=== PATIENT | female | born 1980 | race Caucasian/White ===

== ENCOUNTER 2018-03-04 08:04 | Outpatient (CLI) | payer MEDICAID ==
[~2018-03-04] VITALS: Ht 165.1 cm; Wt 63.2 kg
--- NOTE | ~2018-03-04 | OP ---
PATIENT NAME: RITA DANIELSON MEDICAL RECORD: [id number] :[birth year] LOCATION:D.CAT ADMISSION DATE: SURGEON: MONE DUMONT MD DATE OF OPERATION: 03/04/2018 PROCEDURES: 1. Left heart catheterization. 2. Selective coronary angiography. 3. Left ventriculogram. 4. Four-vessel carotid vertebral angiography. PROCEDURE IN DETAIL: After informed consent was obtained and after a detailed description of risks, benefits as well as alternative therapies, the patient elected to proceed with angiogram and heart catheterization. The right femoral area was prepped and draped in normal sterile fashion. Right femoral artery was cannulated via modified Seldinger technique with placement of 5-Qatari sheath. All catheters exchanged through this sheath. FINDINGS: Left ventriculogram was performed in standard 30-degree OCHOA view, reveals good cardiac wall motion throughout all segments. Overall ejection fraction estimated at 55% to 60%. SELECTIVE CORONARY ANGIOGRAPHY: Left main, left anterior descending, left circumflex, right coronary artery are all smooth-walled vessels with no angiographic evidence of coronary artery disease. FOUR-VESSEL CAROTID VERTEBRAL ANGIOGRAPHY: There was subselection of each subclavian as well as the left carotid. FINDINGS: RIGHT SIDE: The common internal and external carotids have no significant disease. Vertebral arteries devoid of disease. LEFT SYSTEM: The common internal and external carotids have no significant disease. Vertebral artery is widely patent with no significant disease. OVERALL IMPRESSION: 1. No significant coronary artery disease present. 2. Normal LV function. 3. No significant carotid vascular disease is present. TRANSINT:[id number] Voice Confirmation ID: [id number] DOCUMENT ID: [id number] MONE DUMONT MD at 1713 CC: [id number] DICTATION DATE: 03/04/18 1052 SUPERVISOR FIREARMS: 03/04/18 1105 DEP CLI 03/04/18 [address] [place] [address]
--- NOTE | ~2018-03-04 | HEMODYNAMI ---
PATIENT:RITA DANIELSON MEDICAL RECORD: [id number] : 84 LOCATION:C[facility]MO ADMISSION DATE: 03/04/18 Generatedon:03/04/201810:57 Patient name: RITA DANIELSON Patient #: [id number] SSN: : 1980 Date of study: 03/04/2018 Page: Of Hemodynamic Procedure Report Patient Data Patient Demographics Procedure consent was obtained First Name: RITA Gender: Female Last Name: ERUM : 1980 Patient #: [id number] Age: 37 year(s) Race: Black Additional ID: [id number] Contact details [address]: [address] [place] [address] State: [place] City: [place] Zip code: [address] Past Medical History Allergies: No known allergies Admission Admission Data Admission Date: 03/04/2018 Admission Time: 8:04 Procedure Procedure Types Cath Procedure Diagnostic Procedure LHC LHC w/Coronaries Peripheral Cath Diagnostic Procedure Cath Peripheral Four Vessel Arteriogram Procedure Description Procedure Date Procedure Date: 03/04/2018 Procedure Start Time: 10:38 Procedure End Time: 10:50 Procedure Staff Name Function Gabino Massey MD Performing Physician Minnie Elder RT Monitor Missy Hunt RT Scrub Abbi Musa RN Nurse Lucas Rodríguez RT After School Tutor Procedure Data Cath Procedure Fluoroscopy Diagnostic fluoroscopy Total fluoroscopy Time: 1.7 time: 1.7 min min Diagnostic fluoroscopy Total fluoroscopy dose: 211 dose: 211 mGy mGy Contrast Material Contrast Material Type Amount (ml) Isovue 300 57 Entry Location Entry Primary Successful Side Size Upsize Upsize Entry Closure Succes sful Closure Location (Fr) 1 (Fr) 2 (Fr) Remarks Device Remarks Femoral Right 5 Fr Exoseal artery Estimated blood loss: 10 ml Diagnostic catheters Device Type Used For End Catheter Placement MULTIPACK Pigtail 5 Fr Procedure catheter MULTIPACK JL 4.0 5Fr Procedure catheter MULTIPACK 3DRC 5Fr Procedure catheter Procedure Complications No complications Procedure Medications Medication Administration Route Dosage Oxygen NC 2 l/min Lidocaine 2% added to field 20 Heparin Flush Bag added to field 2 bags (1000units/500ml NS) 0.9% NaCl I.V. 100 ml/hr Versed I.V. 1 mg Fentanyl I.V. 50 mcg Versed I.V. 1 mg Fentanyl I.V. 50 mcg Hemodynamics Rest Heart Rate: 65 (bpm) Snapshots Pre Cath Intra NCS Post Cath Vital Signs Time Heart Resp SPO2 etCO2 NIBP (mmHg) Rhythm Pain Sedation Rate (ipm) (%) (mmHg) Status Level (bpm) 10:26:41 69 17 98 33.5 145/78(106) NSR 0 (11) 10(A) , No pain 10:31:13 68 15 96 34.2 Out of NSR 0 (11) 10(A) range , No pain 10:35:05 73 15 95 37.2 116/67(93) NSR 0 (11) 10(A) , No pain 10:39:35 74 13 96 37.2 117/65(88) NSR 0 (11) 10(A) , No pain 10:44:07 80 16 94 39.4 123/61(87) NSR 0 (11) 9(A) , No pain 10:52:31 74 15 95 37.2 117/63(87) NSR 0 (11) 10(A) , No pain Medications Time Medication Route Dose Verified Delivered Reason Notes Effe ctiveness by by 10:26:52 Oxygen NC 2 Gabino Buffie used for l/min Bryson Musa RN procedure 10:27:31 Lidocaine 2% added 20ml Gabino Lloyd for local to vial Bryson Massey MD anesthetic field 10:27:37 Heparin Flush added 2 Gabino Gabino used for Bag to bags Bryson Massey MD procedure (1000units/500ml field NS) 10:27:45 0.9% NaCl I.V. 100 Gabino Buffie Per ml/hr Bryson Musa RN physician 10:38:32 Versed I.V. 1 mg Gabino Personie for Bryson Musa RN sedation 10:38:38 Fentanyl I.V. 50 Gabino Buffie for mcg Bryson Musa RN sedation 10:43:40 Versed I.V. 1 mg Gabino Buffie for Bryson Musa RN sedation 10:43:44 Fentanyl I.V. 50 Gabino Buffie for mcg Bryson Musa RN sedation Procedure Log Time Note 9:55:33 Lucas Rodríguez RT(R) sent for patient. Start room use. 10:16:35 Time tracking: Regular hours (M-F 7:00 - 5:00) 10:16:39 Plan of Care:Hemodynamics will remain stable., Cardiac rhythm will remain stable., Comfort level will be maintained., Respiratory function will remain adequate., Patient/ family verbilizes understanding of procedure., Procedure tolerated without complication., Recovers from procedure without complications.. 10:16:54 Patient received from Pre/Post Procedure Room to CCL 2 Alert and oriented. Tansferred to table in Supine position. 10:16:55 Warm blankets applied, and zulma hugger turned on for patient comfort. 10:16:55 Correct patient and procedure confirmed by team. 10:16:56 Signed procedure consent form obtained from patient. 10:16:57 ECG and BP/O2 sat monitors applied to patient. 10:25:41 Vital chart was started 10:25:43 Baseline sample Acquired. 10:25:56 Rhythm: sinus rhythm 10:25:58 Full Disclosure recording started 10:26:34 H&P Date Dictated: 02/15/2018 Within 30 days and on chart., H&P Addendum completed by physician on day of procedure. (MUST COMPLETE FOR ALL OUTPATIENTS). 10:26:36 Pre-procedure instructions explained to patient. 10:26:39 Family in waiting room. 10:26:46 Patient NPO since Midnight. 10:26:52 Oxygen 2 l/min NC was administered by Abbi Musa RN; used for procedure; 10:26:54 Patient allergic to No known allergies 10:26:58 Is the patient allergic to Iodine/contrast media? No. 10:27:01 Was the patient premedicated? Yes 10:27:06 Is patient on blood thinner?No 10:27:16 Patient diabetic? Yes. 10:27:18 If diabetic: On Metformin? No 10:27:25 Patient not . Patient has had tubal. 10:27:31 Lidocaine 2% 20ml vial added to field was administered by Gabino Massey MD; for local anesthetic; 10:27:37 Heparin Flush Bag (1000units/500ml NS) 2 bags added to field was administered by Gabino Massey MD; used for procedure; 10:27:45 0.9% NaCl 100 ml/hr I.V. was administered by Abbi Musa RN; Per physician; 10::48 Snore? No 10::49 Sleep apnea? No 10:27:57 Dentures? Yes out 10:28:03 Patient pain scale 0/10 ?. 10:28:12 IV patent on arrival in left forearm with 0.9% NaCl at [facility]. 10::41 Lab results completed and on chart. 10::47 Right groin area was prepped with chlora-prep and draped in sterile fashion 10::47 Alarms reviewed by R. N. 10::48 Sharps counted by scrub and verified by R.N. 10::49 Physician paged 10:38:00 Physician arrived 10:38:00 --------ALL STOP TIME OUT------ 10:38:01 Final Timeout: patient, procedure, and site verified with staff and physician. All members of the team are in agreement. 10:38:05 Right groin site verified by team. 10:38:08 Physical assessment completed. ASA score P 2 - A patient with mild systemic disease as per Gabino Massey MD. 10:38:13 Sedation plan: IV Moderate Sedation Medication:Versed, Fentanyl 10:38:17 Procedure started. 10:38:19 Use device set Femoral Dx 10:38:23 Local anesthetic to right femoral artery with Lidocaine 2% by Gabino Massey MD.INITIAL ACCESS ONLY 10:38:32 Versed 1 mg I.V. was administered by Abbi Musa RN; for sedation; 10:38:35 A 5 Fr sheath was inserted into the Right Femoral artery 10:38:38 Fentanyl 50 mcg I.V. was administered by Abbi Musa RN; for sedation; 10:39:08 ACIST Syringe (78282) opened to sterile field. 10:39:08 Bag Decanter (2002) opened to sterile field. 10:39:11 Medline Cath Pack ([id number]) opened to sterile field. 10:39:12 DIAGNOSTIC WIRE .035 260cm J wire (295080) opened to sterile field. 10:39:13 ACIST Hand Control (03214) opened to sterile field. 10:39:14 ACIST Manifold (48909) opened to sterile field. 10:39:16 DIAGNOSTIC Multipack 5Fr catheter set (RV1538) opened to sterile field. 10:39:17 Tegaderm 4 x 4 (1626W) opened to sterile field. 10:39:18 PERCUTANEOUS ENTRY 19GA needle opened to sterile field. 10:39:20 SHEATH Prelude 5Fr 0.035 (VSC-6K-15-035) opened to sterile field. 10:39:23 J wire advanced. 10:39:42 A MULTIPACK Pigtail 5 Fr catheter was advanced over the wire and used for Procedure. 10:39:51 LV angiography performed. 10:40:11 EF : 55 % 10:40:12 Catheter removed. 10:40:20 A MULTIPACK JL 4.0 5Fr catheter was advanced over the wire and used for Procedure. 10:41:01 LCA angiography performed. 10:41:07 Catheter removed. 10:41:32 A MULTIPACK 3DRC 5Fr catheter was advanced over the wire and used for Procedure. 10:41:48 RCA angiography performed. 10:42:10 Left carotid angiography performed. 10:43:32 Right carotid angiography performed. 10:43:40 Versed 1 mg I.V. was administered by Abbi Musa RN; for sedation; 10:43:43 Sheath removed intact; hemostasis achieved with Exoseal to the Right Femoral artery. 10:43:44 Fentanyl 50 mcg I.V. was administered by Abbi Musa RN; for sedation; 10:43:47 EXOSEAL 5Fr (EX500) opened to sterile field. 10:43:50 Procedure ended.(Physican Out) 10:44:37 Fluoroscopy time 01.70 minutes. 10:44:44 Fluoroscopy dose: 211 mGy 10:44:44 Flurop Dose total: 211 10:44:48 Contrast amount:Isovue 300 57ml. 10:45:00 Insertion/operative site no bleeding no hematoma. 10:45:40 Post-op/insertion site Right Femoral artery dressed using a 4 x 4 and Tegaderm. 10:45:41 Post Procedure Pulses reassessed and unchanged 10:45:46 Post-procedure physical assessment completed. ASA score P 2 - A patient with mild systemic disease as per Gabino Massey MD. 10:45:48 Post procedure rhythm: sinus rhythm 10:45:52 Estimated blood loss: 10 ml 10:45:54 Post procedure instruction explained to patient.Patient verbalizes understanding. 10:50:02 Procedure and supply charges have been captured, reviewed, submitted and are correct. 10:50:27 Procedure Complication : No complications 10:50:30 Vital chart was stopped 10:50:33 See physician's report for complete and final results. 10:50:36 Report given to Pre/Post Procedure Room. 10:50:39 Patient transfered to Pre/Post Procedure Room with Stretcher. 10:50:41 Procedure ended. 10:50:41 Full Disclosure recording stopped 10:50:44 End room use (Document Last) Device Usage Item Name Manufacture Quantity Catalog Number Hospital Part Current M inimal Lot# / Charge Number Stock Stock Serial# Code ACIST Syringe Acist 1 78497 [id number] 759623 159329 2 0 (45433) [employer] Bag Decanter Microtek 1 2001S 375462 56971 339420 5 (2001S) Medical Inc. Medline Cath Cardinal 1 [id number] 307445 11238 073205 5 [employer] ([id number]) DIAGNOSTIC WIRE [address] [place] 1 008630 552486 744804 229737 3 0 .035 260cm J wire (182300) ACIST Hand Acist 1 79054 960862 473709 266765 5 Control (62466) [employer] Inc ACIST Manifold Acist 1 61187 130992 355790 180460 5 (70928) [employer] Inc DIAGNOSTIC Cardinal 1 RT9847 958063 98827 698727 3 0 Multipack 5Fr Health catheter set (GE2031) Tegaderm 4 x 4 3M 1 1626W 171254 758435 328327 5 (1626W) PERCUTANEOUS Cook Medical 1 H06859 045058 918347 5 ENTRY 19GA needle SHEATH Prelude Merit 1 QVX-5G-29-035 069946 718997 650427 5 5Fr 0.035 Medical (GSJ-5Y-25-035) MULTIPACK Cardinal 1 771199 5 Pigtail 5 Fr Health catheter MULTIPACK JL Cardinal 1 [id number] 5 4.0 5Fr Health catheter MULTIPACK 3DRC Cardinal 1 043232 5 5Fr catheter Health EXOSEAL 5Fr Cardinal 1 EX500 931936 881946 918206 1 0 (EX500) Health Signature Audit [place] Stage Time Signature Unsigned Intra-Procedure 03/04/2018 Minnie Elder 10:56:59 AM RT(R) Signatures Monitor : Minnie Elder Signature : RT Date : Time : [facility] [address] [place] [address]
[2018-03-04] MEDS ORDERED: HYDROCODON-ACE1 EAC7 PO (08:27)
[2018-03-04] MEDS ORDERED: ZOFRAN ODT4 MG/UDTAB PO (08:27)
[2018-03-04] MEDS ORDERED: LIPITOR40 MG PO (08:27)
[2018-03-04] MEDS ORDERED: NEURONTIN 300300 MG PO (08:28)
[2018-03-04] MEDS ORDERED: HUMALOG 30100 UNITS/ SC (08:28)
[2018-03-04] MEDS ORDERED: VENTOLIN HFA18 GM INH (08:28)
[2018-03-04] MEDS ORDERED: ELAVIL10 MG PO (08:29)
[2018-03-04 08:41] VITALS: BP 114/80; Ht 165.1 cm; Wt 63.2 kg
[2018-03-04 09:01] LABS: ANION GAP 9.4 mmol/L (8-16); CALCIUM 8.8 mg/dL (8.5-10.1); CARBON DIOXIDE 30.5 mmol/L (21.0-32.0); POTASSIUM - SERUM 3.9 mmol/L (3.5-5.1)
[2018-03-04 09:04] LABS: BASOPHILS 0.3 % (0-2); EOSINOPHILS 1.2 % (0-7); HEMATOCRIT 40.3 % (36.0-48.0); HEMOGLOBIN 14.2 g/dL (12-16); IMMATURE GRANULOCYTES 0.1 % (0-5); LYMPHOCYTES 33.2 % (15-50); MCH 29.2 pg (26.0-34.0); MCHC 35.2 g/dL (31.0-37.0); MCV 82.9 fL (80.0-100.0); MEAN PLATELET VOLUME 9.7 fL (7.4-10.4); MONOCYTES 5.3 % (2-11); NEUTROPHILS 59.9 % (40-80); PLATELET COUNT 267 10x3/uL (130-400); RBC 4.86 10x6/uL (4.00-5.40); RDW 12.7 % (11.5-14.5); WBC 9.3 10x3/uL (4.8-10.8)
== END 2018-03-04 13:10 | disposition home or self-care (01) ==
LOC: D.CATH 08:04
PROVIDERS: Internal Medicine Interventional Cardiology
DX: I20.9 Angina pectoris, unspecified (principal); I42.9 Cardiomyopathy, unspecified; Z01.812 Encounter for preprocedural laboratory examination

== ENCOUNTER 2018-08-14 14:33 | Inpatient (IN) | payer MEDICAID ==
[~2018-08-14] VITALS: Ht 165.1 cm; Wt 58.1 kg
[2018-08-14] VITALS (10 sets, daily range): BP systolic 99–123; BP diastolic 52–74; BMI 22.0
--- NOTE | ~2018-08-14 | MORECARE ---
CASE MANAGEMENT DISCHARGE SUMMARY PATIENT: RITA RAMOS UNIT: [id number] ADM DATE: 08/14/18 AGE: 38 : [birth year] SEX: F ROOM/BED: D.2310 AUTHOR: DIANNE OAKES PHYSICIAN: REFERRING PHYSICIAN: OSWALDO ERVIN MD DATE OF SERVICE: 08/16/18 Discharge Plan Patient Name: RITA RAMOS [facility] [facility] 1980 Planned Disposition: Home Anticipated Discharge Date: Discharge Date: Expected LOS: Initial Reviewer: [email or web address] Initial Review Date: 08/15/2018 Generated: 08/16/18 12:40 pm DCPIA - Discharge Planning Initial Assessment Updated by [email or web address]: Yessy Turcios on 08/16/18 11:39 am * Is the patient Alert and Oriented? Yes * How many steps to enter\exit or inside your home? * PCP Francisco Javier Mujica * Pharmacy [facility] * Preadmission Environment Home with Family * ADLs Independent * Equipment Glucometer * Other Equipment insulin pump * List name and contact numbers for known caregivers / representatives who currently or will assist patient after discharge: toby ramos - mother- [phone] * Verbal permission to speak to the caregivers and representatives has been obtained from the patient. N/A * Community resources currently utilized None * Additional services required to return to the preadmission environment? No * Can the patient safely return to the preadmission environment? Yes * Has this patient been hospitalized within the prior 30 days at any hospital? No Patient Name: RITA RAMOS Page 77494 at 1140 All edits/amendments must be made on the electronic document DICTATION DATE: 08/16/18 1140 TELESALES MANAGER: DENNISE 08/16/18 1140 RPT#: [id number] DC DATE: STATUS: ADM IN [facility] [address] [place] [address] END OF REPORT
--- NOTE | ~2018-08-14 | MORECARE ---
CASE MANAGEMENT DISCHARGE SUMMARY PATIENT: RITA RAMOS UNIT: [id number] ADM DATE: 08/14/18 AGE: 38 : [birth year] SEX: F ROOM/BED: D.2310 AUTHOR: CHAMP,DOC PHYSICIAN: REFERRING PHYSICIAN: OSWALDO ERVIN MD DATE OF SERVICE: 08/16/18 Discharge Plan Patient Name: RITA RAMOS Facility: [facility]:[place] : 1980 Planned Disposition: Home Anticipated Discharge Date: Discharge Date: Expected LOS: Initial Reviewer: [email or web address] Initial Review Date: 08/15/2018 Generated: 08/16/18 12:47 pm Comments DCP- Discharge Planning Updated by [email or web address]: Yessy Turcios on 08/16/18 10:[address] Patient Name: RITA RAMOS Admission Status: ER Accout number: [id number] Admission Date: 08-14-2018 : 1980 Admission Diagnosis: Attending: OSWALDO ERVIN Current LOS: 2 Anticipated DC Date: Planned Disposition: Home Primary Insurance: MEDICAID [place] Discharge Planning Comments: CM met with patient at bedside. Patient plans on returning to her home with her family. Patient denies any discharge needs at this time. CM will continue to follow and assist as needed with discharge planning / needs. Wedger Machine: Yessy Turcios DCPIA - Discharge Planning Initial Assessment Updated by [email or web address]: Yessy Turcios on 08/16/18 11:39 am * Is the patient Alert and Oriented? Yes * How many steps to enter\exit or inside your home? * PCP Francisco Javier Mujica * Pharmacy [facility] * Preadmission Environment Home with Family * ADLs Independent * Equipment Glucometer * Other Equipment insulin pump * List name and contact numbers for known caregivers / representatives who currently or will assist patient after discharge: toby ramos - mother- [phone] * Verbal permission to speak to the caregivers and representatives has been obtained from the patient. N/A * Community resources currently utilized None * Additional services required to return to the preadmission environment? No * Can the patient safely return to the preadmission environment? Yes * Has this patient been hospitalized within the prior 30 days at any hospital? No Last DP export: 08/16/18 10:40 a Patient Name: RITA RAMOS Page 92607 at 1147 All edits/amendments must be made on the electronic document DICTATION DATE: 08/16/181146 DISASSEMBLER: DENNISE 08/16/181146 RPT#: [id number] DC DATE: STATUS: ADM IN [facility] [address] [place] [address] END OF REPORT
--- NOTE | ~2018-08-14 | MORECARE ---
CASE MANAGEMENT DISCHARGE SUMMARY PATIENT: RITA RAMOS UNIT: [id number] ADM DATE: 08/14/18 AGE: 38 : 84 SEX: F ROOM/BED: D.6214 AUTHOR: CHAMP,DOC PHYSICIAN: REFERRING PHYSICIAN: OSWALDO ERVIN MD DATE OF SERVICE: 08/19/18 Discharge Plan Patient Name: RITA RAMOS Facility: [facility]:[place] : 1980 Planned Disposition: Home Anticipated Discharge Date: 08/18/18 Discharge Date: 08/18/2018 Expected LOS: 4 Initial Reviewer: [email or web address] Initial Review Date: 08/15/2018 Generated: 08/19/18 12:53 pm Comments DCP- Discharge Planning Updated by [email or web address]: Yessy Turcios on 08/16/18 10:[address] Patient Name: RITA RAMOS Admission Status: ER Accout number: [id number] Admission Date: 08-14-2018 : 1980 Admission Diagnosis: Attending: OSWALDO ERVIN Current LOS: 2 Anticipated DC Date: Planned Disposition: Home Primary Insurance: MEDICAID [place] Discharge Planning Comments: CM met with patient at bedside. Patient plans on returning to her home with her family. Patient denies any discharge needs at this time. CM will continue to follow and assist as needed with discharge planning / needs. Signal Maintainer: Yessy Turcios DCPIA - Discharge Planning Initial Assessment Updated by [email or web address]: Yessy Turcios on 08/16/18 11:39 am * Is the patient Alert and Oriented? Yes * How many steps to enter\exit or inside your home? * PCP Francisco Javier Mujica * Pharmacy [facility] * Preadmission Environment Home with Family * ADLs Independent * Equipment Glucometer * Other Equipment insulin pump * List name and contact numbers for known caregivers / representatives who currently or will assist patient after discharge: toby ramos - mother- [phone] * Verbal permission to speak to the caregivers and representatives has been obtained from the patient. N/A * Community resources currently utilized None * Additional services required to return to the preadmission environment? No * Can the patient safely return to the preadmission environment? Yes * Has this patient been hospitalized within the prior 30 days at any hospital? No Last DP export: 08/16/18 10:47 a Patient Name: RITA RAMOS Page 46025 at 1153 All edits/amendments must be made on the electronic document DICTATION DATE: 08/19/18 1152 THREAD CUTTER: DENNISE 08/19/18 1152 RPT#: [id number] DC DATE:08/18/18 STATUS: DIS IN [facility] [address] [place] [address] END OF REPORT
[~2018-08-14 14:33] MED LIST: ELAVIL10 MG PO; HUMALOG 30100 UNITS/ SC; HYDROCODON-ACE1 EAC7 PO; LIPITOR40 MG PO; NEURONTIN 300300 MG PO; VENTOLIN HFA18 GM INH; ZOFRAN ODT4 MG/UDTAB PO
[2018-08-14] MEDS ORDERED: HUMALOG 30100 UNITS/ SC (14:38)
[2018-08-14] MEDS ORDERED: HUMULIN R100 U/ML SC (14:39)
[2018-08-14 15:27] LABS: APPEARANCE CLEAR (CLEAR); COLOR YELLOW (YELLOW); NITRITE NEGATIVE (NEGATIVE); PROTEIN NEGATIVE (NEGATIVE); SPECIFIC GRAVITY 1.015 (1.005-1.020)
[2018-08-14 15:28] LABS: BILIRUBIN NEGATIVE (NEGATIVE); GLUCOSE 250 mg/dL (NEGATIVE); KETONE MODERATE mg/dL (NEGATIVE); UROBILINOGEN NORMAL (NORMAL)
[2018-08-14 15:29] LABS: BACTERIA MODERATE /hpf (NONE SEEN); EPITHELIAL CELLS 0-5 /hpf (0-5); RED CELLS - URINE 0-5 /hpf (0-5)
[2018-08-14 17:05] LABS: ANION GAP 32.8 mmol/L (8-16); CALCIUM 8.1 mg/dL (8.5-10.1); CREATININE - SERUM 2.1 mg/dL (0.6-1.3); MAGNESIUM - SERUM 2.5 mg/dL (1.8-2.4); POTASSIUM - SERUM 4.4 mmol/L (3.5-5.1)
[2018-08-14 17:10] LABS: CARBON DIOXIDE 8.6 mmol/L (21.0-32.0)
[2018-08-14 20:11] LABS: ANION GAP 16.5 mmol/L (8-16); CREATININE - SERUM 1.8 mg/dL (0.6-1.3); MAGNESIUM - SERUM 2.2 mg/dL (1.8-2.4); POTASSIUM - SERUM 3.9 mmol/L (3.5-5.1)
[2018-08-14 20:12] LABS: CARBON DIOXIDE 22.4 mmol/L (21.0-32.0)
[2018-08-15] VITALS (24 sets, daily range): BP systolic 96–146; BP diastolic 54–93; Ht 165.1 cm; Wt 58.1 kg
[2018-08-15 00:58] LABS: ANION GAP 16.8 mmol/L (8-16); CALCIUM 7.7 mg/dL (8.5-10.1); CARBON DIOXIDE 23.1 mmol/L (21.0-32.0); CREATININE - SERUM 1.4 mg/dL (0.6-1.3); POTASSIUM - SERUM 3.9 mmol/L (3.5-5.1)
[2018-08-15 04:40] LABS: MCH 28.4 pg (26.0-34.0); MCHC 34.4 g/dL (31.0-37.0); MCV 82.5 fL (80.0-100.0); PLATELET COUNT 251 10x3/uL (130-400); RBC 3.88 10x6/uL (4.00-5.40); RDW 13.3 % (11.5-14.5); WBC 25.3 10x3/uL (4.8-10.8)
[2018-08-15 04:43] LABS: ANION GAP 19.5 mmol/L (8-16); CALCIUM 8.3 mg/dL (8.5-10.1); CARBON DIOXIDE 22.4 mmol/L (21.0-32.0); CREATININE - SERUM 1.4 mg/dL (0.6-1.3); POTASSIUM - SERUM 3.9 mmol/L (3.5-5.1)
[2018-08-15 05:51] LABS: BASOPHILS 2 % (0-2); EOSINOPHILS 2 % (0-7); LYMPHOCYTES 5 % (15-50); MONOCYTES 3 % (2-11); NEUTROPHILS 83 % (40-80); PLATELET ESTIMATE NORMAL
[2018-08-15 08:25] LABS: ANION GAP 14.3 mmol/L (8-16); CALCIUM 8.6 mg/dL (8.5-10.1); CARBON DIOXIDE 26.3 mmol/L (21.0-32.0); CREATININE - SERUM 1.4 mg/dL (0.6-1.3); POTASSIUM - SERUM 3.6 mmol/L (3.5-5.1)
[2018-08-16] VITALS (20 sets, daily range): BP systolic 90–144; BP diastolic 50–103
[2018-08-16 10:34] LABS: ALBUMIN 2.7 g/dL (3.4-5.0); ANION GAP 13.6 mmol/L (8-16); BILIRUBIN - TOTAL 0.88 mg/dL (0.2-1.3); CALCIUM 8.4 mg/dL (8.5-10.1); CARBON DIOXIDE 28.6 mmol/L (21.0-32.0); POTASSIUM - SERUM 3.2 mmol/L (3.5-5.1); PROTEIN - SERUM 6.7 g/dL (6.4-8.2)
[2018-08-16 10:36] LABS: BASOPHILS 0.1 % (0-2); EOSINOPHILS 0.1 % (0-7); HEMATOCRIT 33.2 % (36.0-48.0); HEMOGLOBIN 11.1 g/dL (12-16); IMMATURE GRANULOCYTES 0.2 % (0-5); MCHC 33.4 g/dL (31.0-37.0); MCV 83.8 fL (80.0-100.0); MEAN PLATELET VOLUME 9.3 fL (7.4-10.4); MONOCYTES 4.6 % (2-11); PLATELET COUNT 208 10x3/uL (130-400); RBC 3.96 10x6/uL (4.00-5.40); RDW 13.2 % (11.5-14.5)
[2018-08-16 10:43] LABS: WBC 9.8 10x3/uL (4.8-10.8)
[2018-08-17] VITALS (9 sets, daily range): BP systolic 115–143; BP diastolic 76–92
[2018-08-18] VITALS: BP 102/68
[2018-08-18 04:00] VITALS: BP 119/76
[2018-08-18 08:39] VITALS: BP 108/76
[2018-08-18] MEDS ORDERED: LEVOFLOXACIN500 MG PO (16:14)
== END 2018-08-18 18:31 | disposition home or self-care (01) | DRG 638 ==
LOC: D.ER 14:33 → D.ICU 14:56 → D.M2 08-17 15:19
PROVIDERS: Family Medicine; Internal Medicine Nephrology
DX: E11.10 Type 2 diabetes mellitus with ketoacidosis without coma (principal); N17.9 Acute kidney failure, unspecified; N39.0 Urinary tract infection, site not specified; Z96.41 Presence of insulin pump (external) (internal); F17.200 Nicotine dependence, unspecified, uncomplicated; D50.9 Iron deficiency anemia, unspecified